=== PATIENT | female | born 1950 | race Caucasian/White ===

== ENCOUNTER 2022-10-30 05:50 | Day surgery (SDC) | payer OTHER ==
[~2022-10-30] VITALS: Ht 149.9 cm; Wt 112.0 kg
[2022-10-30] MEDS ORDERED: CEFAZOLIN SOD 2 GM in D5W 50 ML IV ONE (07:00)
[2022-10-30] MEDS ORDERED: NS 100 ML BAG ONE (07:45)
[2022-10-30] MEDS ORDERED: BUPIVACAINE /PF 0.25% 30 ML VIAL INJ ONE (07:45)
[2022-10-30] MEDS ORDERED: NS 1000 ML IV.SOLN IV ONE (07:45)
[2022-10-30] MEDS ORDERED: PROPOFOL 200MG/ 20ML VIAL (DIPRIVAN) IV ONE (07:45)
[2022-10-30] MEDS ORDERED: SEVOFLURANE 15 MIN GAS INH ONE (07:45)
[2022-10-30] MEDS ORDERED: DEXAMETHASONE SOD PHOSPHATE 4 MG/ML VIAL ONE (07:45)
[2022-10-30] MEDS ORDERED: SUGAMMADEX SODIUM 200 MG/2 ML VIAL IV ONE (07:45)
[2022-10-30] MEDS ORDERED: NS IRRIG SOLN 1000 ML IR ONE (07:45)
[2022-10-30] MEDS ORDERED: ROCURONIUM BROMIDE 10 MG/ML (ZEMURON) ONE (07:45)
[2022-10-30] MEDS ORDERED: SUCCINYLCHOLINE CHLORIDE 20 MG/ML(QUELICIN) ONE (07:45)
[2022-10-30 09:25] VITALS: O2SAT 95
[2022-10-30] MEDS ORDERED: D5/0.45 NS 1,000 ML IV SCH ×2 (09:45→14:00)
[2022-10-30] MEDS ORDERED: HYDROcodone/ACETAMIN 5-325 MG TAB (NORCO/ VICODIN) PO PRN ×2 (09:45)
[2022-10-30] MEDS ORDERED: MEPERIDINE HCL/PF 25 MG/ML DISP.SYRIN IVP PRN (10:45)
[2022-10-30] MEDS ORDERED: HYDROmorphone 1 MG/ML INJ. CARTRIDGE IVP PRN (10:45)
[2022-10-30] MEDS ORDERED: LR 1,000 ML IV SCH (10:45)
[2022-10-30] MEDS ORDERED: ONDANSETRON HCL 4 MG/2 ML VIAL IVP PRN (10:45)
[2022-10-30] MEDS ORDERED: METOCLOPRAMIDE HCL 10 MG/2 ML VIAL IVP PRN (10:45)
[2022-10-30 11:35] VITALS: BP_SYST 131; PULSE 82; RESP 16
== END 2022-10-30 12:30 | disposition home or self-care (01) ==
LOC: SDS 05:50 → SMU 05:50 → SDS 12:30
PROVIDERS: ATTEND Colon & Rectal Surgery
DX: K80.10 Calculus of gallbladder with chronic cholecystitis without obstruction (principal); R13.10 Dysphagia, unspecified; R63.4 Abnormal weight loss; I10 Essential (primary) hypertension; E11.9 Type 2 diabetes mellitus without complications; E66.9 Obesity, unspecified; Z68.42 Body mass index [BMI] 45.0-49.9, adult; E78.5 Hyperlipidemia, unspecified; G89.29 Other chronic pain; Z79.899 Other long term (current) drug therapy
CPT/HCPCS: 87081; 47563; 82962; 74300; 88304; J3490 ×2; J0690; J1100; J2704; J0330; Q9967; J7060; J7030; C1727